=== PATIENT | male | born 1945 | race Caucasian/White ===

== ENCOUNTER 2020-12-21 15:25 | Emergency (ER) | payer MEDICARE, OTHER, SELFPAY ==
--- NOTE | ~2020-12-21 | XR_ITS ---
EXAMINATION: XR chest 1V DATE: 12/21/2020 15:38 INDICATION: Facial weakness. TECHNIQUE: A single frontal view of the chest was obtained. COMPARISON: None. FINDINGS: There is marked elevation of right hemidiaphragm. No pneumonia, pleural effusion, or pneumo thorax. The heart size is normal. IMPRESSION: 1. Marked elevation of right hemidiaphragm. Reviewed, dictated and finalized at location B.
--- NOTE | ~2020-12-21 | CT_ITS ---
EXAMINATION: CT brain wo [place] EXAM DATE: 12/21/2020 15:35 INDICATION: Left-sided facial droop, confusion. TECHNIQUE: Spiral CT of the head was performed without contrast. Axial, coronal and sagittal images were reviewed. The dose-length product (DLP) for this examination was 605.33 mGy-cm. The exposure w as tailored according to patient size, and iterative reconstruction (ASIR) was used as additional dos e reduction technique. There is no prior study for comparison. FINDINGS: There is no acute intraparenchymal hemorrhage. No evidence of intraparenchymal brain mass lesion. No evidence of acute infarction. Please note that initial head CT has limited sensitivity f or small or acute infarctions. Cavum vergae and cavum septum pellucidum. There is mild periventricu lar and subcortical hypodensity, nonspecific but probably related to small vessel ischemic disease. There is mild prominence of the sulci and ventricles related to cerebral atrophy. There is intracr anial carotid arteriosclerosis. There are no extra-axial collections. There is no mass effect or mi dline shift. The orbits are unremarkable. Soft tissue is unremarkable. The visualized sinuses and mastoid air cells are well aerated. IMPRESSION: 1. No acute intracranial findings. 2. Chronic age related findings. As per stroke protocol, I called these results to emergency room, discussed with Rosa Alas MD at 12/21/2020 15:41 CDT. Reviewed, dictated and finalized at location A. IMPRESSION: 1. No acute intracranial findings. 2. Chronic age related findings. As per stroke protocol, I called these results to emergency room, discussed wit h Rosa Alas MD at 12/21/2020 15:41 CDT.
--- NOTE | 2020-12-21 15:27 | ECG_ITS ---
Measurements Intervals [place] Rate: 73 P: 40 NC: 185 QRS: 78 QRSD: 98 T: 16 QT: 357 QTc: 394 Interpretive Statements SINUS RHYTHM INCOMPLETE RIGHT BUNDLE BRANCH BLOCK BASELINE WANDER- V6 BORDERLINE ECG Electronically Signed On 12-21-2020 16:07:41 CDT by Yobani Harvey D.O.
[2020-12-21 15:39] VITALS: BP 155/86; PULSE 76; RESP 18; TEMP 36.6; O2SAT 100
--- NOTE | 2020-12-21 15:40 | PC.NURSE ---
Arrives ambulatory steady gait from triage, daughter noticed L side of facial droop this afternoon. Pt noticed dry eyes x2 days and is continuously blinking R eye. Pt has [place] palsy appearing symptoms including unable to raise L eyebrow, cannot fully close L eye, L side facial droop. Clear speech, equal strength all extremities. Takes daily 81mg ASA
--- NOTE | 2020-12-21 16:02 | ED.GENADULT ---
HPI - General Adult General Chief complaint: Suspected CVA Stated complaint: rule out CVA Time Seen by Provider: 12/21/20 15:54 Source: patient History of Present Illness HPI narrative: Patient is 75 y/o male complaining of left facial droop. He states that his daughter noticed it around 1:30 PM today. He is not sure when last known normal was. He states that his daughter saw him one week ago last Monday and did not notice it. He also noticed that he is not able to fully close left eye when he woke up this morning. Review of Systems Constitutional: Constitutional: Denies chills, Denies fever(s), Denies headache(s) and Denies weakness Eyes: Eyes: Denies blurry vision ENT: Denies headache(s) and Denies neck pain Cardiovascular: Cardiovascular: Denies chest pain and Denies dyspnea Respiratory: Respiratory: Denies cough and Denies dyspnea Gastrointestinal: Gastrointestinal: Denies abdominal pain, Denies diarrhea, Denies nausea and Denies vomiting Genitourinary: Genitourinary: Denies hematuria and Denies dysuria Musculoskeletal: Musculoskeletal: Denies back pain and Denies neck pain Neurologic: Reports as per HPI, Denies headache(s), Denies weakness and Reports other (left facial droop, difficulty closing left eye) Exam Const: General: no acute distress and well developed Orientation/consciousness: oriented to person, oriented to place, oriented to time and patient oriented x3 HENMT: Head: normocephalic Ears: external ears normal General nose exam: Normal external nose present Eyes: General: appearance normal, both eyes and all related structures Conjunctivae: conjunctivae normal Neck: Neck: normal visual inspection and full ROM Chest: Chest palpation & inspection: normal inspection of the chest and no tenderness Resp: Effort & Inspection: normal respiratory effort Auscultation: clear to auscultation bilaterally Cardio: Rate: regular rate Rhythm: regular rhythm GI: GI Palp: No abdominal tenderness and Yes Soft to palpation Skin: General skin exam: normal color and turgor normal Neuro: General: oriented to person, oriented to place, oriented to time and patient oriented x3 Cranial nerves: Yes facial symmetry (left facial droop, difficulty with closing left eye fully) Cognition (Neuro): normal cognition Speech: normal speech Motor exam (neuro): 5/5 motor strength present throughout Sensory Exam: normal sensation Extrem: General: normal to inspection, full ROM and no pedal edema Psych: Appearance: grossly normal Mental Status: mental status grossly normal Affect: normal affect Course Vital Signs Vital signs: Vital Signs Temperature 36.6 C 12/21/20 15:39 Pulse Rate 76 12/21/20 15:39 Respiratory Rate 18 12/21/20 15:39 Blood Pressure 155/86 H 12/21/20 15:39 Pulse Oximetry 100 12/21/20 15:39 Temperature 36.6 C 12/21/20 15:39 Pulse Rate 66 12/21/20 18:23 Respiratory Rate 17 12/21/20 18:23 Blood Pressure 132/84 12/21/20 18:23 Pulse Oximetry 98 12/21/20 18:23 Medical Decision Making Vital Signs Vital Signs: Vital Signs Temperature 36.6 C 12/21/20 15:39 Pulse Rate 76 12/21/20 15:39 Respiratory Rate 18 12/21/20 15:39 Blood Pressure 155/86 H 12/21/20 15:39 Pulse Oximetry 100 12/21/20 15:39 Temperature 36.6 C 12/21/20 15:39 Pulse Rate 66 12/21/20 18:23 Respiratory Rate 17 12/21/20 18:23 Blood Pressure 132/84 12/21/20 18:23 Pulse Oximetry 98 12/21/20 18:23 Lab Data Result diagrams: 12/21/20 16:05 12/21/20 16:05 Labs: Lab Results 12/21/20 12/21/20 12/21/20 Range/Units 15:49 16:05 16:05 WBC 6.4 (4.5-10.0) K/mm3 RBC 4.39 L (4.6-6.20) M/mm3 Hgb 12.6 L (14.0-18.0) g/dL Hct 37.6 L (42.0-52.0) % MCV 85.6 (80-100) fl MCH 28.7 (26-34) pg MCHC 33.5 (32-36) g/dl RDW 13.2 (11.5-14.5) % Plt Count 248 (150-375) k/mm3 MPV 9.2 (7.4-10.4) fl Immature Gran %
[2020-12-21 16:11] LABS: Basophils Percent Auto 0.6 % (0.2-1.2); Eosinophils Absolute Auto 0.1 K/mm3 (0-0.3); Eosinophils Percent Auto 1.9 % (0-4.4); Hematocrit 37.6 % (42.0-52.0); Hemoglobin 12.6 g/dL (14.0-18.0); Immature Granulocyte Absolute 0.03 K/mm3 (0.00-0.031); Immature Granulocyte Percent A 0.5 % (0-0.5); Lymphocytes Absolute Auto 1.82 K/mm3 (0.9-3.2); Lymphocytes Percent Auto 28.7 % (18.3-44.2); Mean Corpuscular HGB Conc 33.5 g/dl (32-36); Mean Corpuscular Hemoglobin 28.7 pg (26-34); Mean Corpuscular Volume 85.6 fl (80-100); Mean Platelet Volume 9.2 fl (7.4-10.4); Monocytes Absolute Auto 0.4 K/mm3 (0.1-0.6); Monocytes Percent Auto 6.6 % (2.6-8.5); Neutrophils Absolute Auto 3.9 K/mm3 (1.3-6.7); Neutrophils Percent Auto 61.7 % (45.5-73.1); Platelet Count Result 248 k/mm3 (150-375); Red Blood Count 4.39 M/mm3 (4.6-6.20); Red Cell Distribution Width 13.2 % (11.5-14.5); White Blood Count 6.4 K/mm3 (4.5-10.0)
[2020-12-21 16:24] LABS: Anion Gap 7 mmol/L (8-16); Blood Urea Nitrogen 13 mg/dL (9-20); Carbon Dioxide 28 mmol/L (22-30); Chloride 103 mmol/L (98-107); Estimated CRCL calculation 93 ml/min; Estimated Glomerular Filt Rate > 60; Glucose 120 mg/dL (75-110); Potassium 4.2 mmol/L (3.4-5.0); Prothrombin Time 13.4 Seconds (11.1-14.7); Sodium 138 mmol/L (137-145)
[2020-12-21 16:25] LABS: Partial Thromboplastin Time 28.7 SECONDS (22.3-36.8)
[2020-12-21 16:30] LABS: Glucose Point of Care 116 (65-105)
[2020-12-21 16:36] LABS: Troponin I < 0.012 ng/mL (0.000-0.034)
--- NOTE | 2020-12-21 16:45 | PC.NURSE ---
Pt resting on cart HOB elevated, non labored respirations. Pt and updated on POC, call light within reach
[2020-12-21 18:23] VITALS: BP 132/84; PULSE 66; RESP 17; O2SAT 98
== END 2020-12-21 18:25 | disposition home or self-care (01) ==
PROVIDERS: Emergency Provider Emergency Medicine; PCP Internal Medicine
DX: G51.0 Bell's palsy (principal); I45.10 Unspecified right bundle-branch block
CPT/HCPCS: 36415; 70450; 71045; 80048; 82948; 84484; 85025; 85610; 85730; 93005; 99284